=== PATIENT | female | born 1980 | race Caucasian/White ===

== ENCOUNTER 2023-07-01 16:10 | Outpatient (CLI) | payer MEDICARE, SELFPAY ==
--- NOTE | ~2023-07-01 | MM_ITS ---
EXAMINATION: MM screening familia BI w yuliet HISTORY: Screening TECHNIQUE: Craniocaudal and mediolateral oblique 3-D tomosynthesis images were obtained and synthetic 2-D images were generated. CAD analysis was submitted and interpreted. COMPARISON: No prior mammogram is available for comparison at this institution. BREAST PARENCHYMAL COMPOSITION: Not dense: There are scattered areas of fibroglandular density. FINDINGS: There is a focal linear asymmetry in the lower central aspect of the right breast posterior ly. There is no mammographic evidence for malignancy in the left breast. IMPRESSION: 1. Focal linear asymmetry of the right breast. 2. Additional mammographic views and possible breast ultrasound are recommended. BI-RADS Category 0: Incomplete: Needs additional imaging evaluation. Reviewed, dictated and finalized at location A. IMPRESSION: 1. Focal linear asymmetry of the right breast. 2. Additional mammographic views and possible breast ultrasound are recommended . BI-RADS Category 0: Incomplete: Needs additional imaging evaluation.
== END 2023-07-01 16:11 | disposition home or self-care (01) ==
LOC: ANHIMG 16:17
PROVIDERS: Visit Provider Obstetrics & Gynecology
DX: Z12.31 Encounter for screening mammogram for malignant neoplasm of breast (principal); R92.8 Other abnormal and inconclusive findings on diagnostic imaging of breast
CPT/HCPCS: 77063; 77067

== ENCOUNTER 2023-08-05 11:02 | Outpatient (CLI) | payer MEDICARE, SELFPAY ==
--- NOTE | ~2023-08-05 | MMUS_ITS ---
EXAMINATION: MM diagnostic familia RT w yuliet, US breast RT limited HISTORY: Focal linear asymmetry in right breast reported on 07/01/2023 screening mammogram TECHNIQUE: Additional 3-D tomosynthesis images of the right breast were performed and synthetic 2-D i mages were generated. Rolled medial craniocaudal and rolled lateral craniocaudal views. CAD analysis was submitted and interpreted. High resolution limited right breast ultrasound was performed. COMPARISON: 07/01/2023 bilateral screening mammogram FINDINGS: MAMMOGRAPHIC FINDINGS: There is an up to approximately 4 mm vertical by 26 mm anteroposterior discoid density in the posteri or upper inner right breast (mL-symphysis image 65/82). ULTRASOUND: Limited imaging in the upper inner and lower inner to lower outer quadrant areas reveals no suspiciou s mass or shadowing. IMPRESSION: 1. Probable benign asymmetric fibroglandular density in the posterior upper inner right breast on thi s baseline examination 2. Six-month diagnostic right mammogram follow-up is recommended to document stability BI-RADS category 3, probably benign findings. Reviewed, dictated and finalized at location A. IMPRESSION: 1. Probable benign asymmetric fibroglandular density in the posterior upper inn er right breast on this baseline examination 2. Six-month diagnostic right mammogram follow-up is recommended to document st ability BI-RADS category 3, probably benign findings.
== END 2023-08-05 11:03 | disposition home or self-care (01) ==
LOC: ANHIMG 11:05
PROVIDERS: Visit Provider Obstetrics & Gynecology
DX: R92.8 Other abnormal and inconclusive findings on diagnostic imaging of breast (principal)
CPT/HCPCS: 76642; 77061; 77065; G0279

== ENCOUNTER 2024-08-17 11:40 | Outpatient (CLI) | payer MEDICARE, SELFPAY ==
--- NOTE | ~2024-08-17 | MM_ITS ---
EXAMINATION: MM diagnostic familia BI w yuliet HISTORY: Follow-up right breast asymmetries TECHNIQUE: Additional 3-D tomosynthesis images of the right breast were performed and synthetic 2-D i mages were generated. CAD analysis was submitted and interpreted. COMPARISON: Comparison to multiple prior studies sequentially, with oldest reviewed study dated 06/30. BREAST PARENCHYMAL COMPOSITION: Not dense: There are scattered areas of fibroglandular density. FINDINGS: The right breast is stable without evidence for malignancy. No new masses, calcifications o r textural distortion in the either breast to suggest malignancy. IMPRESSION: 1. No mammographic evidence for malignancy in either breast. 2. Routine yearly screening mammogram and regular clinical breast examination are recommended. BI-RADS Category 1: Negative Reviewed, dictated and finalized at location A. IMPRESSION: 1. No mammographic evidence for malignancy in either breast. 2. Routine yearly screening mammogram and regular clinical breast examination a re recommended. BI-RADS Category 1: Negative
== END 2024-08-17 11:41 | disposition home or self-care (01) ==
PROVIDERS: Visit Provider Obstetrics & Gynecology
DX: R92.8 Other abnormal and inconclusive findings on diagnostic imaging of breast (principal)
CPT/HCPCS: 77062; 77066; G0279